=== PATIENT | female | born 1995 | race Hispanic/Latino ===

== ENCOUNTER 2022-01-18 06:15 | Inpatient (IN) | payer OTHER ==
[2022-01-18] VITALS (12 sets, daily range): BP systolic 106–150; BP diastolic 56–81
[~2022-01-18] VITALS: Ht 157.5 cm; Wt 85.9 kg
[2022-01-18] MEDS ORDERED: HOME MED LIST COMPLETE! XX SCH (06:30)
[2022-01-18] MEDS ORDERED: LIDOCAINE 1% MDV 20ML VIAL INFIL PRN (06:50)
[2022-01-18] MEDS ORDERED: LR 1,000 ML IV SCH (06:50)
[2022-01-18] MEDS ORDERED: LACTATED RINGER'S 1000 ML IV STA (06:50)
[2022-01-18] MEDS ORDERED: OXYTOCIN DRIP 30 UNITS in IV 1 EA IV PRN (06:50)
[2022-01-18] MEDS ORDERED: TRANEXAMIC ACID INJection 1,000 MG in NS 100 ML IV PRN (06:50)
[2022-01-18] MEDS ORDERED: METHYLERGONOVINE MALEATE 0.2 MG/ML VIAL (J2210) IM PRN (06:50)
[2022-01-18 07:15] LABS: HEMATOCRIT 37.9 % (36.0-47.0); HEMOGLOBIN 13.2 g/dl (12.0-15.5); MEAN CORPUSCULAR HEMOGLOBIN 31.7 pg (27.0-33.0); MEAN CORPUSCULAR HGB CONC 34.8 g/dl (32.0-36.5); MEAN CORPUSCULAR VOLUME 90.9 fl (80.0-96.0); PLATELET COUNT, AUTOMATED 323 10^3/uL (150-450); RED BLOOD COUNT 4.17 10^6/uL (4.00-5.40); WHITE BLOOD COUNT 13.9 10^3/uL (4.0-10.0)
[2022-01-18] MEDS ORDERED: IBUPROFEN 600MG TAB PO PRN (08:40)
[2022-01-18] MEDS ORDERED: MEASLES,MUMPS,RUBELLA VACCINE INJ (MMR-II) (90707) SC SCH (08:40)
[2022-01-18] MEDS ORDERED: ACETAMINOPHEN TAB 650MG DOSE (2X325MG) PO PRN (08:40)
[2022-01-18] MEDS ORDERED: DIBUCAINE 1% OINTMENT 30GM TOP PRN (08:40)
[2022-01-18] MEDS ORDERED: PROMETHAZINE 25 MG TAB PO PRN (08:40)
[2022-01-18] MEDS ORDERED: RHOGAM 300 MCG (1500 IU) INJ (J2790) IM SCH (08:40)
[2022-01-18] MEDS ORDERED: OXYTOCIN DRIP 30 UNITS in IV 1 EA IV SCH (09:00)
[2022-01-18] MEDS: PRENATAL VITAMINS CHEWABLE TABLET PO SCH (09:00)
[2022-01-18] MEDS: DOCUSATE SODIUM 100MG CAPSULE PO PRN (20:56)
[2022-01-18] MEDS: ACETAMINOPHEN 500 MG TAB PO PRN (20:56)
[2022-01-19] MEDS: IBUPROFEN 800 MG TAB PO PRN ×2 (05:13→16:30)
[2022-01-19 06:00] VITALS: BP 102/59
[2022-01-19] MEDS: PRENATAL VITAMINS CHEWABLE TABLET PO SCH (09:07)
[2022-01-19 18:00] VITALS: BP 117/66
[2022-01-19] MEDS: DOCUSATE SODIUM 100MG CAPSULE PO PRN (23:14)
[2022-01-20 06:00] VITALS: BP 118/73
[2022-01-20] MEDS: ACETAMINOPHEN 500 MG TAB PO PRN (06:15)
[2022-01-20] MEDS ORDERED: COLA100C5 PO (07:40)
[2022-01-20] MEDS ORDERED: ACET-683 PO (07:40)
[2022-01-20] MEDS ORDERED: IBUP80TA PO (07:40)
[2022-01-20] MEDS ORDERED: NORE0.353 PO (07:41)
[2022-01-20] MEDS: PRENATAL VITAMINS CHEWABLE TABLET PO SCH (08:29)
== END 2022-01-20 12:55 | disposition home or self-care (01) | DRG 807 ==
LOC: M LDO 06:15 → M LDI 06:26 → M OBS 13:10
PROVIDERS: ADMIT Obstetrics & Gynecology; ATTEND Obstetrics & Gynecology
PROC: 10E0XZZ Delivery of Products of Conception, External Approach (ICD-10-PCS; principal; 2022-01-18)
PROC: 0KQM0ZZ Repair Perineum Muscle, Open Approach (ICD-10-PCS; 2022-01-18)
DX: O70.1 Second degree perineal laceration during delivery (principal); Z37.0 Single live birth; Z3A.39 39 weeks gestation of pregnancy; O69.1XX0 Labor and delivery complicated by cord around neck, with compression, not applicable or unspecified